=== PATIENT | male | born 1990 | race Caucasian/White ===

== ENCOUNTER → 2016-08-03 | Outpatient (CLI) | payer BC | LOC: COL.RAD 11:58 | DX: N50.811 Right testicular pain (principal) ==

== ENCOUNTER → 2016-10-25 | Outpatient (REF) | LOC: WSOH 09:58 | DX: Z02.4 Encounter for examination for driving license (principal) ==

== ENCOUNTER 2017-04-17 14:13 | Outpatient (RCR) | payer OTHER | END 2017-07-13 09:46 | disposition home or self-care (01) | LOC: WSOH 14:13 | DX: M22.2X2 Patellofemoral disorders, left knee (principal); W00.0XXA Fall on same level due to ice and snow, initial encounter; Y99.0 Civilian activity done for income or pay ==